=== PATIENT | male | born 1975 | race Caucasian/White ===

== ENCOUNTER 2016-07-13 06:50 | Emergency (ER) | payer SELFPAY ==
[~2016-07-13] VITALS: Ht 185.4 cm; Wt 84.9 kg
[~2016-07-13 06:50] MED LIST: FENO50TA PO; HYDR10TA23 PO; TOPI0.252 TOP
[2016-07-13 06:57] VITALS: BP 136/94; PULSE 66; RESP 16; TEMP 97.5; O2SAT 99
--- NOTE | 2016-07-13 07:27 | PD ---
HPI Chief Complaint: Flank/Kidney Pain Time Seen by Provider: 07:12 Travel History International Travel<30 days: No Contact w/Intl Traveler<30days: No Traveled to known affect area: No History of Present Illness HPI This patient complains of right flank pain. Duration is 28 hours. Severity is moderate. No injury or fever or urinary complaints. No alleviating factors. There is no sciatic radiation. PFSH Past Medical History Blood Disorders: No Depression: Yes Cancer: No Cardiovascular Problems: No High Cholesterol: Yes Diabetes: No Diminished Hearing: No Genitourinary: No Hepatitis: No Hiatal Hernia: No Immune Disorder: No Medical other: Yes (chronic back pain) Musculoskeletal: No Neurologic: No Psychiatric: No Reproductive: No Respiratory: No Thyroid Disease: No Tetanus Vaccination: < 5 Years Influenza Vaccination: No Past Surgical History Body Medical Devices: PINS IN LOWER BACK Pacemaker: No Other Surgery: Yes (INGUINAL HERNIA REPAIR - AND 4 BACK SURGERIES) Social History Alcohol Use: Yes (8-18 cans of beer 12 oz cans a day, pt states quit 13 days ago) Tobacco Use: Yes (1 PPD) Substance Use: Yes (smokes "weed") Allergies-Medications (Allergen,Severity, Reaction): Coded Allergies: No Known Allergies (Verified , 07/13/16) Reported Meds & Prescriptions Reported Meds & Active Scripts Active No Active Prescriptions or Reported Medications Review of Systems General / Constitutional: No: Fever Eyes: No: Visual changes HENT: No: Headaches Cardiovascular: No: Chest Pain or Discomfort Respiratory: No: Shortness of Breath Gastrointestinal: No: Abdominal Pain Genitourinary: Positive: Flank Pain, No: Dysuria Musculoskeletal: No: Pain Skin: No Rash Neurologic: No: Weakness Psychiatric: No: Depression Endocrine: No: Polydipsia Hematologic/Lymphatic: No: Easy Bruising Physical Exam Narrative GENERAL: Well-nourished, well-developed patient with right flank pain. SKIN: Focused skin assessment reveals no rash and nodules. Skin is Warm and dry. HEAD: Atraumatic. Normocephalic. EYES: Pupils equal and round. No scleral icterus. No injection or drainage. ENT: No nasal bleeding or discharge. Mucous membranes pink and moist. NECK: Trachea midline. No JVD. CARDIOVASCULAR: Regular rate and rhythm. No murmur appreciated. RESPIRATORY: No accessory muscle use. Clear to auscultation. Breath sounds equal bilaterally. GASTROINTESTINAL: Abdomen soft, non-tender, nondistended. Hepatic and splenic margins not palpable. MUSCULOSKELETAL: No obvious deformities. No clubbing. No cyanosis. No edema. No midline tenderness. No lumbar spasm or atrophy or asymmetry NEUROLOGICAL: Awake and alert. No obvious cranial nerve deficits. Motor grossly within normal limits. Normal speech. PSYCHIATRIC: Appropriate mood and affect; insight and judgment normal. Data Data Last Documented VS Vital Signs Date Time Temp Pulse Resp B/P Pulse Ox O2 Delivery O2 Flow Rate FiO2 07/13/16 07:05 16 07/13/16 06:57 97.5 66 136/94 99 Orders Urinalysis - C+S If Indicated (07/13/16 07:21) Ct Abd/Pel W/O Iv Contrast (07/13/16 ) Labs Laboratory Tests Test 07/13/16 06:55 Urine Collection Type CLEAN CATCH Urine Color YELLOW Urine Turbidity CLEAR Urine pH 6.0 Urine Specific [place] 1.011 Urine Protein 100 mg/dL Urine Glucose (UA) NEG mg/dL Urine Ketones NEG mg/dL Urine Occult Blood LARGE Urine Nitrite NEG Urine Bilirubin NEG Urine Leukocyte Esterase NEG Urine RBC 25-49 /hpf Urine Squamous Epithelial 0-5 /hpf Cells Microscopic Urinalysis Comment CULT NOT INDICATED Urine Collection Time 06:55 MDM Medical Decision Making Medical Screen Exam Complete: Yes Emergency Medical Condition: Yes Medical Record Reviewed: Yes Differential Diagnosis Kidney stone, lumbar strain, sciatica Narrative Course I have reviewed the patient's electronic medical record. He was in 2011 with calcaneus fracture Etiology of his pain is not entirely clear from history and exam. He is neurologically intact without objective findings Urinalysis shows blood without sign of infection CT of abdomen and pelvis is normal Patient has some flank pain and hematuria without any CT findings He has normal vitals and stable for outpatient follow-up He declines any pain medication Diagnosis Primary Impression: Acute right flank pain Additional Impression: Hematuria Additional Instructions: The patient was advised to follow up with their physician and return if they worsen. Med/Other Pt SpecificInfo: Other Scripts No Active Prescriptions or Reported Meds Disposition: 01 DISCHARGE HOME Condition: Stable Mp Le MD Jul 13, 2016 07:27
[2016-07-13 07:28] LABS: BLOOD, URINE LARGE (NEG); GLUCOSE,URINE NEG (NEG); KETONE, URINE NEG (NEG); NITRITE,URINE NEG (NEG)
[2016-07-13 07:33] LABS: METHOD OF COLLECTION CLEAN CATCH
[2016-07-13 07:34] LABS: URINE COLOR YELLOW (YELLW/STRAW)
[2016-07-13 07:35] LABS: COMMENT (UR) CULT NOT INDICATED; CULTURE IF INDICATED CULT NOT INDICATED; SQUAMOUS EPITHELIAL CELL URINE 0-5 /hpf (0-5)
--- NOTE | 2016-07-13 07:59 | RADHPO ---
EXAM DATE/TIME: 07/13/2016 07:36 [facility] COMPARISON: No previous studies available for comparison. INDICATIONS : Right flank pain. ORAL CONTRAST: No oral contrast ingested. RADIATION DOSE: 13.12 CTDIvol (mGy) MEDICAL HISTORY : Hypercholesterolemia. SURGICAL HISTORY : Lumbar surgery. ENCOUNTER: Initial ACUITY: 2 days PAIN SCALE: 8/10 LOCATION: Right flank TECHNIQUE: Volumetric scanning of the abdomen and pelvis was performed. Using automated exposure control and ad justment of the mA and/or kV according to patient size, radiation dose was kept as low as reasonably achievable to obtain optimal diagnostic quality images. FINDINGS: LOWER LUNGS: The visualized lower lungs are clear. LIVER: Homogeneous density without lesion. There is no dilation of the biliary tree. No calcified gallston es. SPLEEN: Normal size without lesion. PANCREAS: Within normal limits. KIDNEYS: Normal in size and shape. There is no mass, stone, or hydronephrosis. ADRENAL GLANDS: Within normal limits. VASCULAR: There is no aortic aneurysm. There is mild atherosclerotic disease. BOWEL/MESENTERY: The stomach, small bowel, and colon demonstrate no acute abnormality. There is no free intraperitone al air or fluid. The appendix is normal. ABDOMINAL WALL: Within normal limits. RETROPERITONEUM: There is no lymphadenopathy. BLADDER: No wall thickening or mass. REPRODUCTIVE: Within normal limits. There are prostate calcifications. INGUINAL: There is no lymphadenopathy or hernia. MUSCULOSKELETAL: There has been posterior spinal fixation with bilateral pedicular screws and hardware at L4-S1. CONCLUSION: 1. No abnormality is identified to explain the right flank pain. No renal stones or signs of urinary obstruction are present. Additionally, the appendix is normal. 2. Mild atherosclerotic disease. Daljit Dominguez MD on July 13, 2016 at 7:54 Board Certified Radiologist. This report was verified electronically.
== END 2016-07-13 08:30 | disposition home or self-care (01) ==
LOC: PHED 06:50
DX: R10.84 Generalized abdominal pain (principal); R31.9 Hematuria, unspecified
CPT/HCPCS: 74176; 81001